=== PATIENT | female | born 1935 | race Caucasian/White ===

== ENCOUNTER → 2018-07-15 | Outpatient (CLI) | payer MEDICARE ==
[2016-03-31 23:00] VITALS: BP 149/71
[~2018-07-15] MED LIST: AMLO2.5T5 PO; AMLO5TAB10 PO; ASPI-630 PO; AZIT250T PO; INSU100I11 SQ; INSU100V8 SQ; LOSA25TA54 PO; MULT1TAB52 PO; PHEN177S7 PO; PRAV40TA2 PO; REGADENOSON 0.4 MG/5 ML DISP.SYRIN. IV ONE
--- NOTE | 2018-07-15 10:51 | CARD ---
MR#: [id number] Date of Study: 07/15/2018 Ordering Physician: MYRNA SAMANIEGO, Referring Physician: MYRNA SAMANIEGO, Tech: Lazara Fan APPROVED REPORT EXAM: Two-dimensional and M-mode echocardiogram with Doppler and color Doppler. Other Information Quality : GoodHR: 60bpm Rhythm : NSR INDICATION CAD Surgery/Intervention CABG: Date: 2006 RISK FACTORS Hypertension Hyperlipidemia Diabetes 2D DIMENSIONS RVDd3.2 (2.9-3.5cm)Left Atrium(2D)4.0 (1.6-4.0cm) IVSd1.3 (0.7-1.1cm)Aortic Root(2D)2.8 (2.0-3.7cm) LVDd4.4 (3.9-5.9cm)LVOT Diameter2.0 (1.8-2.4cm) PWd1.3 (0.7-1.1cm)LVDs2.6 (2.5-4.0cm) FS (%) 41.3 %SV64.8 ml LVEF(%)72.4 (>50%) Aortic Valve AoV Peak Matthew.138.7cm/sAoV VTI33.1cm AO Peak GR.7.7mmHgLVOT Peak Matthew.107.7cm/s AO Mean GR.4mmHgAVA (VMAX)2.38cm2 Mitral Valve MV E Peak Gr.139mmHg Pulmonary Valve PV Peak Awupszdb841.4cm/s Tricuspid Valve TR P. Ptuhbtfv587cm/sRAP QAYQRSAD2oiCe TR Peak Gr.65isPpFYYB83orLf Pulmonary Vein S1 Ukoyefwj70.8cm/sD2 Hpslmdzg03.5cm/s PVa [id number] LEFT VENTRICLE The left ventricle is normal size. There is moderate concentric left ventricular hypertrophy. The lef t ventricular systolic function is normal. The Ejection Fraction is 60%. There is normal LV segmental wall motion. RIGHT VENTRICLE The right ventricle is normal size. There is normal right ventricular wall thickness. The right ventr icular systolic function is normal. ATRIA The left atrium size is normal. The right atrium size is normal. The interatrial septum is intact wit h no evidence for an atrial septal defect or patent foramen ovale as noted on 2-D or Doppler imaging. AORTIC VALVE The aortic valve is normal in structure and function. Doppler and Color Flow revealed no significant aortic regurgitation. There is no significant aortic valvular stenosis. MITRAL VALVE The mitral valve is normal in structure and function. There is no evidence of mitral valve prolapse. There is no mitral valve stenosis. Doppler and Color-flow revealed mild to moderate mitral regurgitat ion. TRICUSPID VALVE The tricuspid valve is normal in structure and function. Doppler and Color Flow revealed trace tricus pid regurgitation. There is no tricuspid valve stenosis. PULMONIC VALVE The pulmonary valve is normal in structure and function. Doppler and Color Flow revealed mild pulmoni c valvular regurgitation. GREAT VESSELS The aortic root is normal in size. The IVC is normal in size and collapses >50% with inspiration. PERICARDIAL EFFUSION There is no evidence of significant pericardial effusion. Critical Notification Critical Value: No <Conclusion> The left ventricular systolic function is normal. The Ejection Fraction is 60%. There is normal LV segmental wall motion. Mild to moderate mitral regurgitation. Trace tricuspid regurgitation. There is no evidence of significant pericardial effusion. Signed by : Haider Chin, Electronically Approved : 07/15/2018 10:51:02
--- NOTE | 2018-07-15 13:11 | RAD ---
MR#: [id number] Date of Study: 07/15/2018 Ordering Physician: MYRNA SAMANIEGO, Referring Physician: WIN DEXTER Tech: SHELLY Benton APPROVED REPORT Test Type: Pharmacological Stress Nurse/Tech: Olga Hall RN Test Indications: CAD Cardiac History: Diabetes, Hypertension,CABG x3 Medications: See Electronic Medical Record Medical History: See Electronic Medical Record Resting ECG: SB Resting Heart Rate: 55 bpm Resting Blood Pressure: 164/50mmHg Pretest Chest Pain: No chest pain Nurse/Tech Notes S1, S2 and lungs clear to auscultation. Consent: The procedure was explained to the patient in lay terms. Informed consent was witnessed. Ervin eout was entered into [employer]. History and Stress Test performed by RT Tan (R) (N) Pharm. Details Pharmacologic stress testing was performed using 0.4mg per 5ml of regadenoson given intravenously ove r 7-10 seconds. Stress Symptoms Dizziness POST EXERCISE Reason for Termination: Infusion complete Target HR: No Max HR: 79 bpm Max Blood Pressure: 144/41mmHg Blood Pressure response to exercise: Normal blood pressure response during stress. Heart Rate response to exercise: WNL Chest Pain: No. Arrhythmia: Yes. ST Change: No. INTERPRETATION Stress EKG Conclusion: Baseline EKG showed sinus rhythm. No ischemic changes at peak stress. No arr hythmias. Imaging Protocol IMAGE PROTOCOL: Rest Tc-99m/stress Tc-99m 1 day Rest: Stress: Viability: Radiopharm.Tc99m MkarcavlyMt79l Sestamibi Erel65wKv 33mCi Duration 16min. 13min. Img Date 07/15/2018 07/15/2018 Inj-Img [id number]. 60min. Rest Admin Site:IV - Left AntecubitalAdministrator:RT Tan (R)(N) Stress Admin Site: IV - Left AntecubitalAdministrator: HALIMA Smith, ARRT (R)(N) STRESS DATA End Diast. Vol.86.0mlLVEDV index BSA50.0ml End Syst. Vol.25.0mlLVESV index BSA15.0ml Myocardial Arzh954.0gEject. Alxenncz49.0% Stress Scores Regional WT0.00Summed WT1.00 Regional WM0.00Summed WM11.00 Study quality was good. Left Ventricular size was Normal at Rest and Stress. Lung uptake was . Left Ventricular ejection fraction is 71%. The rest and stress images show normal perfusion, normal contraction and thickening. LV Perf. Quant 17 Seg. SSS0.00 17 Seg. SRS0.00 17 Seg. SDS0.00 Stress Defect Extent (% LAD)0.00Rest Defect Extent (% LAD)0.00Rev. Defect Extent (% LAD)0.00 Stress Defect Extent (% LCX) 0.00Rest Defect Extent (% LCX)0.00Rev. Defect Extent (% LCX)0.00 Stress Defect Extent (% RCA)0.00Rest Defect Extent (% RCA)0.00Rev. Defect Extent (% RCA)0.00 Stress Defect Extent (% DESIRAE)0.00Rest Defect Extent (% DESIRAE)0.00Rev. Defect Extent (% DESIRAE)0.00 Conclusion 1. Regadenoson cardioisotope stress test did not show any evidence of ischemia or infarct. 2. Normal left ventricular systolic function with ejection fraction calculated at 71%. 3. Low risk for cardiac events. Signed by : Haider Chin, Electronically Approved : 07/15/2018 13:10:37
--- NOTE | 2018-07-16 09:11 | RAD ---
MR#: [id number] Date of Study: 07/15/2018 Ordering Physician: MYRNA SAMANIEGO, Referring Physician: MYRNA SAMANIEGO, Tech: Zacarias Raygoza MBA, RDMS, RVT, RDCS, RTR APPROVED REPORT Patient Location: OUT-PATIENT Laterality:Bilateral Indications pad Doppler Spectral Velocity Analysis Right Left pCCA 93/12 cm/spCCA 123/17 cm/s mCCA 131/18 cm/smCCA 111/14 cm/s dCCA 109/13 cm/sdCCA 119/15 cm/s Bulb 106/15 cm/sBulb 130/ cm/s ECA 220/ cm/sECA 255/ cm/s pICA 101/16 cm/spICA 109/20 cm/s Janel 110/19 cm/smICA 121/22 cm/s dICA 105/20 cm/sdICA 125/26 cm/s Vert. 33/ cm/sVert. 130/ cm/s Subcl. 191/ cm/sSubcl. 250/ cm/s ICA/CCA 0.84ICA/CCA 1.02 Findings Grayscale images of the bilateral common carotid and external and internal carotid vessels reveals mo derate plaque throughout the arterial tree. Spectral waveforms involving the internal carotid arteries bilaterally demonstrate overall 0 to less than 50% stenosis by velocity criteria. Bilateral external carotid artery velocities are elevated suggestive of greater than 70% stenosis. Normal ICA to CCA ratios noted. The right vertebral velocities are diminished but antegrade. The left vertebral velocity is elevated likely suggestive of an element of moderate stenosis. The bilateral subclavian velocities are mildly elevated. Critical Notification Critical Value: No <Conclusion> No high-grade bilateral internal carotid artery disease. 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 Signed by : Myrna Samaniego, Electronically Approved : 07/16/2018 09:11:15
--- NOTE | 2018-07-16 09:19 | RAD ---
MR#: [id number] Date of Study: 07/15/2018 Ordering Physician: MYRNA SAMANIEGO, Referring Physician: MYRNA SAMANIEGO, Tech: Zacarias Raygoza MBA, RDMS, RVT, RDCS, RTR APPROVED REPORT Patient Location: OUT-PATIENT Indications PAD VELOCITY AND DOPPLER WAVEFORM ANALYSIS RIGHT cm/secWaveformSeverity LEFT cm/secWaveform Severity dCFA 154.0BiphasicdCFA 167.0Biphasic Prof Fem Art. 72.0BiphasicProf Fem Art. 114.0Biphasic Fem Art Prox. 127.0BiphasicFem Art Prox. 156.0Biphasic Fem Art Mid. 116.0BiphasicFem Art Mid. 168.0Biphasic Fem Art Dist. 141.0BiphasicFem Art Dist. 156.0Biphasic Pop Art(Fossa) 91.0BiphasicPop Art(AK) 197.0Biphasic REMEDIATION TECHNICIAN Prox. 46.0MonophasicPTA Prox. 82.0Biphasic REMEDIATION TECHNICIAN Dist. 87.0MonophasicPTA Dist. 83.0Biphasic Per Art Mid. 44.0MonophasicPer Art Mid. 87.0Biphasic VIRGILIO Prox. 46.0MonophasicATA Prox. 91.0Biphasic DPA 104MonophasicDPA 131Monophasic Image Findings Grayscale images of the bilateral lower extremity arterial vessels reveals mild diffuse atherosclerot ic plaque. No focal obstruction is noted. Spectral waveforms are mostly biphasic in nature. No significant velocity acceleration is noted in th e right lower 70. On the left lower extremity there are mildly elevated velocities from the SFA to the popliteal segmen t suggestive of less than 50% stenosis. There is three-vessel runoff below the knee. Critical Notification Critical Value: No <Conclusion> No high-grade flow-limiting stenosis identified in the bilateral lower extremity arterial vessels. Signed by : Myrna Samaniego, Electronically Approved : 07/16/2018 09:19:05
== END | disposition home or self-care (01) ==
LOC: NM 09:13
PROVIDERS: ATTEND Internal Medicine Cardiovascular Disease
DX: I34.0 Nonrheumatic mitral (valve) insufficiency (principal); I65.23 Occlusion and stenosis of bilateral carotid arteries; I11.9 Hypertensive heart disease without heart failure; I25.10 Atherosclerotic heart disease of native coronary artery without angina pectoris; E78.5 Hyperlipidemia, unspecified; E11.9 Type 2 diabetes mellitus without complications; Z95.1 Presence of aortocoronary bypass graft
CPT/HCPCS: 78452; 93017; 93306; 93880; 93925; 96374; A9500; J2785

== ENCOUNTER → 2018-09-11 | Outpatient (CLI) | payer MEDICARE ==
[2016-03-31 23:00] VITALS: BP 149/71
[~2018-09-11] MED LIST changes: -REGADENOSON 0.4 MG/5 ML DISP.SYRIN. IV ONE
--- NOTE | 2018-09-11 17:45 | RAD ---
EXAM: Left upper extremity arterial Doppler sonogram. HISTORY: Subclavian stenosis. TECHNIQUE: Hannah scale and color Doppler sonographic imaging of the left upper extremity arteries with spectral waveform analysis was performed. COMPARISON: None. FINDINGS: There is atherosclerotic plaque within the upper extremity arteries. The peak systolic velocities within the proximal and distal left subclavian artery are 240 cm/s and 156 cm/s. The peak systolic velocities within the remainder of the left upper extremity arteries measure 136 cm/s and the axillary artery, 185 cm/s within the proximal brachial artery, the heart and 57 cm/s within the mid brachial artery, 145 cm/s within the distal brachial artery, 105 cm/s within the proximal radial artery, 121 cm/s within the distal radial artery, 68 cm/s within the proximal ulnar artery, and 93 cm/s within the distal ulnar artery. IMPRESSION: Elevated peak systolic velocity throughout the proximal left upper extremity arteries, predominantly within the proximal subclavian artery. This is likely due to a component of hemodynamically significant stenosis. No occlusion is seen. Electronically signed by: Vanessa Spence MD (09/11/2018 5:42 PM) [facility]
== END | disposition home or self-care (01) ==
LOC: US 15:32
PROVIDERS: ATTEND Internal Medicine
DX: I70.298 Other atherosclerosis of native arteries of extremities, other extremity (principal)
CPT/HCPCS: 93931

== ENCOUNTER → 2020-06-26 | Outpatient (CLI) | payer MEDICARE ==
[2016-03-31 23:00] VITALS: BP 149/71
[~2020-06-26] MED LIST changes: +AMLO-186 PO; -AMLO5TAB10 PO; +MULT-445 PO; -MULT1TAB52 PO; -PHEN177S7 PO; +PHEN177S75 PO
--- NOTE | 2020-06-26 17:55 | RAD ---
INDICATION: Reason: LT CAROTID BRUIT / Spl. Instructions: / History: COMPARISON: None. TECHNIQUE: Color, grayscale and doppler ultrasound images obtained of the carotid system bilaterally. Percent stenosis is estimated using criteria that correlates with NASCET methodology. FINDINGS: Peak systolic velocities are as follows in cm/s: Right Carotid System: CCA: 125 ICA: 117 External carotid artery 250 ICA/CCA Ratio 0.9 Left Carotid System: CCA: 109 ICA: 121 External carotid artery 267 ICA/CCA Ratio 1.1 Vertebral arteries are antegrade bilaterally. Multifocal plaque is identified including hard plaque. Right subclavian artery 325 cm/S. IMPRESSION: * Multifocal plaque is seen throughout the carotid system bilaterally without hemodynamically signif icant stenosis identified at the internal carotid arteries. * Elevated velocities at the bilateral extrarenal carotid arteries as well as right subclavian arter y. Regions of stenosis could have this appearance. Electronically signed by: Chico Quintanilla MD (06/26/2020 5:53 PM) [id number]
== END ==
LOC: US 15:34
PROVIDERS: ATTEND Internal Medicine
DX: I65.23 Occlusion and stenosis of bilateral carotid arteries (principal)
CPT/HCPCS: 93880